=== PATIENT | female | born 1995 | race Caucasian/White ===

== ENCOUNTER 2020-07-13 11:51 | Emergency (ER) | payer BC ==
[~2020-07-13] VITALS: Ht 157.5 cm; Wt 50.5 kg
[2020-07-13] MEDS ORDERED: LORazepam 2 MG/ML, 1ML ONE (11:59)
--- NOTE | 2020-07-13 12:00 | NUR ---
pt presents from lobby with active seizure activity pt in altered and shaking no family present pt straight back to room 17
--- NOTE | 2020-07-13 12:03 | NUR ---
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
--- NOTE | 2020-07-13 12:04 | NUR ---
ERPA AT BEDSIDE FOR EVALUATION. PATIENT MEDICATED WITH 2 MG IV ATIVAN.
[2020-07-13] MEDS ORDERED: ONDANSETRON 2MG/ML, 2ML ONE (12:06)
--- NOTE | 2020-07-13 12:10 | NUR ---
Mary PEARL has been to bedside for evaluation. IV placed and pt medicated for seizure activity pt has had 4 intermittent episodes of seizure activity no bleeding from the mouth. pt lips dry and chapped. no obvious oral injury seizure precautions in place
--- NOTE | 2020-07-13 12:15 | NUR ---
pt is now awake and talking pt states that she has a hx of pseudo seizures and that she is under the care of a neurologist. pt reports that she had a seizure earlier today at school and hit her face on a wooden table. pt reports that a classmate drove her home and then she had a friend bring her here, then she started seizing when she entered the lobby pt reports that today is the first day of her menstruation and that sometimes it acn trigger her seizures. pt also states that sometimes when her blood sugar is low it can trigger seizure activity as well. 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 pt reports generalized pain at this time no loss of bowel or bladder control
--- NOTE | 2020-07-13 12:20 | NUR ---
tech at bedside for EKG
--- NOTE | 2020-07-13 12:23 | NUR ---
pt to CT scan via gurbob. seizure precautions in place. IV infusing. pt resting calmly
[2020-07-13 12:27] LABS: BASOPHILS % (AUTO) 0 % (0-1); EOSINOPHILS % (AUTO) 1 % (1-7); LYMPHOCYTES % (AUTO) 27 % (22-44); MEAN CORPUSCULAR HEMOGLOBIN 30.6 pg (27.0-34.8); MEAN CORPUSCULAR HGB CONC 33.1 g/dL (32.4-35.8); MEAN PLATELET VOLUME 9.6 fL (7.4-10.4); MONOCYTES % (AUTO) 6 % (2-9); NEUTROPHILS % (AUTO) 66 % (42-75); PLATELET COUNT 267 x10^3/uL (130-400); RED CELL DISTRIBUTION WIDTH 14.3 % (9.6-15.2)
[2020-07-13 12:30] LABS: ALBUMIN 4.7 g/dL (3.4-5.0); ANION GAP 12 mmol/L (5-15); CALCIUM 9.2 mg/dL (8.5-10.1); CHLORIDE 110 mmol/L (98-107)
[2020-07-13] MEDS ORDERED: SODIUM CHLORIDE 0.9% 1,000ML IVBOLUS ONE (12:30)
[2020-07-13] MEDS ORDERED: ONDANSETRON 2MG/ML, 2ML IVPush ONE (12:30)
[2020-07-13] MEDS ORDERED: LORazepam 2 MG/ML, 1ML IVPush ONE ×2 (12:30→13:00)
--- NOTE | 2020-07-13 12:30 | NUR ---
DMV seizure form intiated and given to Mary PEARL
[2020-07-13 12:34] LABS: ALANINE AMINOTRANSFERASE 30 U/L (12-78); ALKALINE PHOSPHATASE 53 U/L (45-117); BILIRUBIN,TOTAL 0.4 mg/dL (0.2-1.0); TOTAL PROTEIN 8.8 g/dL (6.4-8.2)
--- NOTE | 2020-07-13 12:36 | NUR ---
pt still in RAD
--- NOTE | 2020-07-13 12:41 | NUR ---
pt has returned from [place]. per business office technician, immediatley post scan, pt had another witnessed seizure when tranfered back to [facility] but only lasted for a few seconds. upon return to room 17, pt alert and talking. resting on her side in position of comfort
--- NOTE | 2020-07-13 12:55 | NUR ---
no new tremulous/sz activity noted. pt resting in position of comfort
--- NOTE | 2020-07-13 13:22 | NUR ---
pt dozing intermittently. no new seizure type activity noted. seizure precautions in place report to Max LONG
--- NOTE | 2020-07-13 14:01 | NUR ---
REVIEW OF CHART, ASSUME CARE OF PT AT THIS TIME. PT SLEEPING. VS UPDATED IN COMPUTER. ALL RESULS BACK, PT FOR RECHECK.
[2020-07-13] MEDS ORDERED: PLEASE ENTER ALLERGIES MC SCH (14:30)
[2020-07-13] MEDS ORDERED: KETOROLAC 30 MG/1 ML IVPush ONE (14:30)
[2020-07-13 14:56] VITALS: BP 103/52
== END 2020-07-13 15:16 | disposition home or self-care (01) ==
LOC: ED 14:46
DX: R56.9 Unspecified convulsions (principal); R51.9 Headache, unspecified
CPT/HCPCS: 36415; 70450; 70486; 80053; 80320; 85025; 93005; 96361; 96374; 96375; 99285; J2060; J2405; J7030; G0480

== ENCOUNTER 2020-10-04 09:51 | Emergency (ER) | payer BC ==
[~2020-10-04] VITALS: Ht 162.6 cm; Wt 50.9 kg
--- NOTE | 2020-10-04 09:59 | NUR ---
BIB AMBULANCE DUE TO MULTIPLE SEIZURES LASTING 5-20SEC, BS 113. PT ROUSABLE AND OPENS EYES IN BETWEEN WITNESSED SEIZURES BY THIS RN. PT AA0X4 AFTER SEZIURE EPSIODE WHEN DRESSING PATIENT INTO GOWN. PT ATTACHED TO MONITORS AND SEIZURE PADS PLACED AND PRECAUTIONS IN PLACE. AWAITING ORDERS.
--- NOTE | 2020-10-04 10:40 | NUR ---
PT PROVIDED WITH SNACKS AND MEAL TRAY ORDERD PER DR. MATHEW. PER PATIENT SHE HAS SEZIURES WHEN SHE "DOESN'T EAT". PT RESTING IN BED. VSS. NADN. NO SEZIURE ACTIVITY OBSERVED AT THIS TIME. LAB IN ROOM.
[2020-10-04 10:53] LABS: BASOPHILS % (AUTO) 1 % (0-1); EOSINOPHILS % (AUTO) 2 % (1-7); LYMPHOCYTES % (AUTO) 29 % (22-44); MEAN CORPUSCULAR HEMOGLOBIN 31.1 pg (27.0-34.8); MEAN CORPUSCULAR HGB CONC 34.2 g/dL (32.4-35.8); MEAN PLATELET VOLUME 9.2 fL (7.4-10.4); MONOCYTES % (AUTO) 6 % (2-9); NEUTROPHILS % (AUTO) 63 % (42-75); PLATELET COUNT 198 x10^3/uL (130-400); RED CELL DISTRIBUTION WIDTH 13.2 % (9.6-15.2)
[2020-10-04 10:58] LABS: ALBUMIN 3.7 g/dL (3.4-5.0); CALCIUM 8.9 mg/dL (8.5-10.1)
[2020-10-04 11:00] LABS: CREATININE 0.83 mg/dL (0.55-1.02)
[2020-10-04 11:04] LABS: ANION GAP 4 mmol/L (5-15); CHLORIDE 110 mmol/L (98-107)
--- NOTE | 2020-10-04 11:31 | NUR ---
PTS MEAL TRAY HAS NOT BEEN DELIVERED YET. THIS RN CALLED DIET OFFICE AND LEFT MESSAGE. PT ASLEEP IN BED WITH EVEN AND UNLABORED RESPIRATIONS [employer] [place].
[2020-10-04 13:19] VITALS: BP 104/67
--- NOTE | 2020-10-04 13:25 | NUR ---
Patient given discharge instructions and they have confirmed that they understand the instructions. Patient ambulatory with steady gait. NAD, all questions answered appropriately, denies additional needs at this time. No personal belongings left in room after discharge.
== END 2020-10-04 13:26 | disposition home or self-care (01) ==
LOC: ED 10:19
DX: R56.9 Unspecified convulsions (principal); R94.31 Abnormal electrocardiogram [ECG] [EKG]
CPT/HCPCS: 36415; 80048; 82040; 85025; 93005; 99284

== ENCOUNTER 2020-10-04 14:12 | Emergency (ER) | payer BC ==
[~2020-10-04] VITALS: Ht 154.9 cm; Wt 52.5 kg
--- NOTE | 2020-10-04 14:23 | NUR ---
BRAD RN: PT WAS A CODE 250. PT WAS DISCHARGED FOR PSEUDOSEIZURES, PT WAS WAITING FOR HER RIDE OUTSIDE. PT STARTING SHAKING AND REPORTED HAVING ANOTHER PSEUDOSEIZURE. PT DENIES HITTING HEAD. NO LOC. PT IS A&O X4. FSBS 101. FAMILY AT BEDSIDE. NO ACUTE DISTRESS NOTED. PAPER MACHINE BACK TENDER ON. NSR NOTED. CALL LIGHT IN PLACE. WILL CONTINUE TO MONITO
[2020-10-04 14:24] VITALS: BP 108/66
--- NOTE | 2020-10-04 14:26 | NUR ---
PT BROUGHT BACK FROM LOBBY WITH POSSIBLE SEIZURE. PT IS ALERT, ORIENTED, VSS. FSBS 101. NO SEIZURE ACTIVITY NOTED.
--- NOTE | 2020-10-04 14:26 | NUR ---
Note undone in EDM - 10/04/20 at 1433 by LHAFEN FLOAT RN: PT WAS A CODE 250. PT WAS DISCHARGED FOR PSEUDOSEIZURES, PT WAS WAITING FOR HER RIDE OUTSIDE. PT STARTING SHAKING AND REPORTED HAVING ANOTHER PSEUDOSEIZURE. PT DENIES HITTING HIT. NO LOC. PT IS A&O X4. FSBS 101. FAMILY AT BEDSIDE. NO ACUTE DISTRESS NOTED. SERVER ON. NSR NOTED. CALL LIGHT IN PLACE. WILL CONTINUE TO MONITOR.
--- NOTE | 2020-10-04 14:28 | NUR ---
BRAD LONG: REPORT GIVEN TO MERCEDES RESENDIZ
== END 2020-10-04 15:24 | disposition left against medical advice (07) ==
LOC: ED 14:23
DX: R56.9 Unspecified convulsions (principal); Z53.21 Procedure and treatment not carried out due to patient leaving prior to being seen by health care provider
CPT/HCPCS: 82962; 93005; 99283

== ENCOUNTER 2020-10-12 07:04 | Emergency (ER) | payer BC ==
[~2020-10-12] VITALS: Ht 165.1 cm; Wt 60.0 kg
--- NOTE | 2020-10-12 07:13 | NUR ---
GILDA AFTER HAVING MULITPLE "MINI" WITNESSED SEIZURES AT WORK. PT AAOX4 AND NO SEIZURE ACTIVITY WITNESSED BY THIS RN. PT STATES BEING HERE IS A "WASTE OF EVERYONES TIMES, THEY SAID BEFORE MY SEIZURES ARN'T REAL AND THEY JUST GAVE ME PSYCH MEDS". PT ATTACHED TO MONITORS. AIDAN. PRAVEEN. MARIA T PEARL TO BEDSIDE FOR EVALUATION. SEIZURE PRECAUTIONS IN PLACE.
[2020-10-12 08:00] LABS: BASOPHILS % (AUTO) 0 % (0-1); EOSINOPHILS % (AUTO) 0 % (1-7); LYMPHOCYTES % (AUTO) 9 % (22-44); MEAN CORPUSCULAR HEMOGLOBIN 30.1 pg (27.0-34.8); MEAN CORPUSCULAR HGB CONC 33.5 g/dL (32.4-35.8); MEAN PLATELET VOLUME 8.8 fL (7.4-10.4); MONOCYTES % (AUTO) 6 % (2-9); NEUTROPHILS % (AUTO) 85 % (42-75); PLATELET COUNT 217 x10^3/uL (130-400); RED BLOOD COUNT 4.67 x10^6/uL (3.82-5.3); RED CELL DISTRIBUTION WIDTH 12.8 % (9.6-15.2)
[2020-10-12 08:08] LABS: ALBUMIN 3.9 g/dL (3.4-5.0); ANION GAP 7 mmol/L (5-15); CALCIUM 8.6 mg/dL (8.5-10.1); CHLORIDE 110 mmol/L (98-107); CREATININE 0.84 mg/dL (0.55-1.02)
--- NOTE | 2020-10-12 08:23 | NUR ---
PT HYPOTENSITVE, REPORTED TO GELA PEARL, IV BOLUS STARTED ORDERED IN EMAR.
[2020-10-12] MEDS ORDERED: SODIUM CHLORIDE 0.9% 1,000ML IVBOLUS ONE (08:30)
[2020-10-12 09:50] VITALS: BP 105/56
== END 2020-10-12 10:04 | disposition home or self-care (01) ==
LOC: ED 07:59
DX: R56.9 Unspecified convulsions (principal)
CPT/HCPCS: 36415; 80048; 82040; 84703; 85025; 99283; J7030

== ENCOUNTER 2020-11-27 08:32 | Emergency (ER) | payer BC ==
[~2020-11-27] VITALS: Ht 162.6 cm; Wt 59.1 kg
--- NOTE | 2020-11-27 08:33 | NUR ---
PT brought in by pauly from [facility] for witnessed sz activity. EMS administered 5 mg versed. NAHUN Reddy ar bedside for eval.
[2020-11-27] MEDS ORDERED: LORazepam 2 MG/ML, 1ML ONE (08:35)
--- NOTE | 2020-11-27 08:49 | NUR ---
pt refusing labs
[2020-11-27] MEDS ORDERED: LORazepam 2 MG/ML, 1ML IVPush ONE (09:00)
[2020-11-27 09:51] VITALS: BP 100/49
--- NOTE | 2020-11-27 09:51 | NUR ---
Pt resting in bed, call light in reach. sz precautions in place.
--- NOTE | 2020-11-27 10:22 | NUR ---
dc instructions reviewed.
== END 2020-11-27 10:39 | disposition home or self-care (01) ==
LOC: ED 09:29
DX: R56.9 Unspecified convulsions (principal); R55 Syncope and collapse
CPT/HCPCS: 93005; 96374; 99283; J2060